=== PATIENT | female | born 1990 | race Caucasian/White ===

== ENCOUNTER 2018-04-28 21:19 | Emergency (ER) | payer OTHER ==
[~2018-04-28] VITALS: Ht 175.3 cm; Wt 98.9 kg
[2018-04-28 21:29] VITALS: Ht 175.3 cm; Wt 98.9 kg
[2018-04-29 00:20] VITALS: BP 128/78
== END 2018-04-29 00:20 | disposition home or self-care (01) ==
LOC: ED 21:19
DX: B34.9 Viral infection, unspecified (principal)
CPT/HCPCS: J1100; J7613